=== PATIENT | male | born 1980 | race Caucasian/White ===

== ENCOUNTER 2022-06-06 10:55 | Emergency (ER) | payer OTHER ==
[~2022-06-06 10:55] MED LIST: BENADRYL 25MG C25 MG PO; ELIMITE 5% CREA60 GM TOP; KEFLEX CAP 500500 MG PO; SILVADENE20 GM TP
[2022-06-06] MEDS ORDERED: HYDROXYZINE HCL25 MG PO (11:56)
[2022-06-06] MEDS ORDERED: CEPHALEXIN500 MG PO (11:56)
[2022-06-06] MEDS ORDERED: MORGIDOX100 MG PO (11:56)
== END 2022-06-06 12:16 | disposition home or self-care (01) ==
LOC: ER1 10:55
DX: R21 Rash and other nonspecific skin eruption (principal); F41.9 Anxiety disorder, unspecified; F17.200 Nicotine dependence, unspecified, uncomplicated
CPT/HCPCS: 99283

== ENCOUNTER 2022-07-06 00:13 | Emergency (ER) | payer OTHER ==
[~2022-07-06 00:13] MED LIST changes: +CEPHALEXIN500 MG PO; +HYDROXYZINE HCL25 MG PO; +MORGIDOX100 MG PO
[2022-07-06] MEDS ORDERED: CEPHALEXIN500 M1 PO (00:43)
[2022-07-06] MEDS ORDERED: PREDNISONE 50 M50 MG PO (00:43)
[2022-07-06] MEDS ORDERED: BACTRIM DS TAB1 EACH PO (00:43)
== END 2022-07-06 00:53 | disposition home or self-care (01) ==
LOC: ER1 00:13
DX: R21 Rash and other nonspecific skin eruption (principal); F17.210 Nicotine dependence, cigarettes, uncomplicated
CPT/HCPCS: 99282

== ENCOUNTER 2022-07-09 07:32 | Emergency (ER) | payer OTHER ==
[~2022-07-09 07:32] MED LIST changes: +BACTRIM DS TAB1 EACH PO; +CEPHALEXIN500 M1 PO; +PREDNISONE 50 M50 MG PO
[2022-07-09 08:25] LABS: RED BLOOD COUNT 4.85 M/UL (4.20-5.50)
[2022-07-09 08:37] LABS: BUN/CREATININE RATIO 23 (0-10)
[2022-07-09] MEDS ORDERED: CEPHALEXIN500 M1 PO (08:49)
== END 2022-07-09 09:20 | disposition home or self-care (01) ==
LOC: ER1 07:32
PROVIDERS: Nurse Practitioner
DX: R21 Rash and other nonspecific skin eruption (principal)
CPT/HCPCS: 80053; 85025; 99283; J1100